=== PATIENT | female | born 1945 | race Caucasian/White ===

== ENCOUNTER 2016-05-08 09:35 | Emergency (ER) | payer MEDICARE, OTHER ==
[2016-05-08] MEDS ORDERED: ONDANSETRON HCL/PF 4 MG/ 2ML VIAL ONE (10:17)
[2016-05-08] MEDS ORDERED: 0.9 % SODIUM CHLORIDE 1,000 ML IV ONE (10:17)
[2016-05-08] MEDS ORDERED: ONDANSETRON HCL/PF 4 MG/ 2ML VIAL IVP ONE (10:19)
[2016-05-08] MEDS ORDERED: HYOSCYAMINE SULFATE 0.125 MG TAB.SUBL SL ONE (10:26)
[2016-05-08 10:27] LABS: BASOPHILS % 0.5 (0.0-1.5); EOSINOPHILS % 0.6 % (0.0-6.8); LYMPHOCYTES # 1.3 # k/uL (0.6-4.0); MEAN CORPUSCULAR HEMOGLOBIN 30.9 pg (28.0-34.0); MONOCYTES # 0.4 # k/uL (0.0-0.9); MONOCYTES % 5.3 % (0.0-11.0); NEUTROPHILS # 4.8 # k/uL (1.4-7.7)
[2016-05-08] MEDS ORDERED: PANTOPRAZOLE SODIUM 40 MG in 0.9 % SODIUM CHLORIDE 50 ML IV ONE (10:27)
[2016-05-08] MEDS ORDERED: 0.9 % SODIUM CHLORIDE 1,000 ML IV SCH (10:30)
[2016-05-08 10:49] LABS: eGFR (African) > 60; eGFR (Non-African) > 60
[2016-05-08] MEDS ORDERED: POTASSIUM CHLORIDE 20 MEQ TABLET.ER PO ONE (10:55)
--- NOTE | 2016-05-08 12:05 | ED Physician Documentation ---
Abdominal Pain - HISTORIAN Historian: patient - HPI Stated Complaint: nausea/diarrhea Chief Complaint: Abdominal Pain Additonal Information: diarrhea, no blood Onset: days ago (2) Duration: sudden-onset Timing: still present Context: bad food (possibly a bad egg). denies: out of country travel, recent trauma Severity: moderate Quality: aching Front/Back of Body, Lg (Color): 1 - pain 2 - pain Associated Symptoms: nausea, diarrhea Exacerbated by: nothing Relieved by: nothing Further Comments: no - ROS CONST: no problems GI/: other (as above) CVS/RESP: none EYES/ENT: none MS/SKIN/LYMPH: none NEURO/PSYCH: none - SOCIAL HX Smoking History: non-smoker Alcohol Use: none Drug Use: none - FAMILY HX Family History: no significant history - PAST HX Past History: diverticulitis Ischemic Bowel Risk Factors: none Other History: none Surgeries/Procedures: cholecystectomy, hysterectomy, other (left knee surgery) Home Medications: Ambulatory Orders Medication Instructions Recorded Acyclovir [Acyclovir] 400 mg PO TID 05/08/16 Diphenoxylate HCl/Atropine 1 each PO QID PRN #14 tablet 05/08/16 [Lomotil Tablet] Hydrochlorothiazide [Hydrodiuril] 25 mg PO DAILY 05/08/16 Hyoscyamine Sulfate 0.125 mg SL QID PRN #14 tab.subl 05/08/16 Levothyroxine Sodium 100 mg PO DAILY 05/08/16 [Levothyroxine Sodium] Lisinopril [Lisinopril] 30 mg PO DAILY 05/08/16 Montelukast Sodium [Montelukast 10 mg PO DAILY 05/08/16 Sodium] Omeprazole [Prilosec] 20 mg PO DAILY #7 ann. 05/08/16 Omeprazole [Prilosec] 20 mg PO TID 05/08/16 Allergies/Adverse Reactions: Allergies Allergy/AdvReac Type Severity Reaction Status Date / Time codeine Allergy Verified 05/08/16 09:53 latex Allergy Verified 05/08/16 09:53 Penicillins Allergy Verified 05/08/16 09:53 Sulfa (Sulfonamide Allergy Verified 05/08/16 09:53 Antibiotics) - VITAL SIGNS Vital Signs: Vital Signs Temp Pulse Resp BP Pulse Ox 99.2 F 86 18 142/79 98 05/08/16 10:00 05/08/16 10:00 05/08/16 10:00 05/08/16 10:00 05/08/16 10:00 - REVIEWED ASSESSMENTS Nursing Assessment Reviewed: Yes Vitals Reviewed: Yes Progress - Results/Orders Results/Orders: cbc, cmp, amylase, ct abdomen ordered - Progress Progress: pt. given 1 liter ns, 40 mg protonix ivpb, 0.25 mg hyoscyamine p.o. in er Critical Care Note - Critical Care Note Total Time (mins): 0 ED Results Lab/Radiology - Lab Results Lab Results: Lab Results 05/08/16 05/08/16 10:17 10:17 WBC 6.69 K/ul K/ul (4.00-12.00) RBC 4.77 M/ul M/ul (3.90-5.20) Hgb 14.8 g/dL g/dL (12.0-16.0) Hct 43.8 % % (34.5-46.5) MCV 91.9 fl fl (80.0-100.0) MCH 30.9 pg pg (28.0-34.0) MCHC 33.7 g/dL g/dL (30.0-36.0) RDW 13.5 % % (11.3-14.3) Plt Count 280 K/mm3 K/mm3 (130-400) Neut % (Auto) 72.5 % % (39.0-79.0) Lymph % (Auto) 19.4 % % (16.0-50.0) [place] % (Auto) 5.3 % % (0.0-11.0) Eos % (Auto) 0.6 % % (0.0-6.8) Baso % (Auto) 0.5 (0.0-1.5) Neut # 4.8 # k/uL # k/uL (1.4-7.7) Lymph # 1.3 # k/uL # k/uL (0.6-4.0) [place] # 0.4 # k/uL # k/uL (0.0-0.9) Eos # 0.0 # k/uL # k/uL (0.0-0.6) Baso # 0.0 # k/uL # k/uL (0.0-0.5) Reactive Lymphs % 1.7 % % (0.0-5.0) Reactive Lymphs # 0.1 # k/uL # k/uL (0.0-0.8) Sodium 135 mmol/L L mmol/L (136-145) Potassium 2.7 mmol/L L mmol/L (3.5-5.0) Chloride 108 mmol/L mmol/L (98-110) Carbon Dioxide 30 mmol/L mmol/L (20-32) BUN 10 mg/dL mg/dL (10-26) Creatinine 0.7 mg/dL mg/dL (0.4-1.5) Estimated Creat Clear 242 Est GFR ( Amer) > 60 (60 - ) Est GFR (Non-Af Amer) > 60 (60 - ) Glucose 116 mg/dL H mg/dL (70-99) Calcium 8.5 mg/dL mg/dL (8.5-10.5) Total Bilirubin 0.4 mg/dL mg/dL (0.2-1.2) AST 36 U/L U/L (0-41) ALT 36 U/L U/L (0-45) Alkaline Phosphatase 56 U/L U/L (46-116) Total Protein 6.9 g/dL g/dL (6.0-8.5) Albumin 4.2 g/dL g/dL (3.0-5.5) Amylase 32 U/L U/L (20-104) - Radiology Radiology Impressions: ct abdomen shows diverticulosis - Orders Orders: ED Orders Category Date Time Status Place Saline Lock/IV Now Care 05/08/16 10:[address] ABD & PELVIS W/O CON Stat Exams 05/08/16 Taken AMYLASE Routine Lab 05/08/16 10:17 Completed CBC/PLATELET/DIFF Routine Lab 05/08/16 10:17 Completed CMP Routine Lab 05/08/16 10:17 Completed URINALYSIS Routine Lab 05/08/16 10:17 Ordered 0.9 % Sodium Chloride [Normal Saline] 1,000 ml Med 05/08/16 10:30 Ordered IV .Q1H 0.9 % Sodium Chloride [Normal Saline] 1,000 ml Med 05/08/16 10:17 Discontinued IV .STK-MED Hyoscyamine Sulfate [[place]scimin Sl] Med 05/08/16 10:26 Discontinued 0.25 mg SL NOW ONE Ondansetron HCl/Pf [Zofran 4 mg/2 ml] Med 05/08/16 10:17 Discontinued 8 mg .ROUTE .STK-MED ONE Ondansetron HCl/Pf [Zofran 4 mg/2 ml] Med 05/08/16 10:19 Discontinued 8 mg IVP NOW ONE Pantoprazole Sodium [Protonix] 40 mg Med 05/08/16 10:27 Discontinued 0.9 % Sodium Chloride [Sodium Chloride] 50 ml IV 1T Potassium Chloride [Klor-Con M20] Med 05/08/16 10:55 Discontinued 60 meq PO NOW ONE Abdominal Pain Physical Exam - Physical Exam General Appearance: alert, mild distress EENT: eye inspection normal, ENT inspection normal, pharynx normal, no signs of dehydration, [place], no nystagmus, TM's nml NECK: normal inspection, thyroid normal, supple RESPIRATORY: no resp distress, chest non-tender, breath sounds normal CVS: reg rate & rhythm, heart sounds normal, equal pulses, no murmur, no gallop ABDOMEN: soft, no organomegaly, tenderness (sigmoid and epigastric areas), increased BS BACK: normal inspection, no CVA tenderness SKIN: warm/dry, normal color EXTREMITIES: non-tender, normal range of motion, no evidence of injury NEURO: oriented X3, CN's nml as tested, motor nml, sensation nml, mood/affect nml, cognition normal Vital Signs: Vital Signs Temp Pulse Resp BP Pulse Ox 99.2 F 86 18 142/79 98 05/08/16 10:00 05/08/16 10:00 05/08/16 10:00 05/08/16 10:00 05/08/16 10:00 Discharge Clincal Impression: Diverticulosis Qualifiers: Diverticulosis site: diverticulosis of large intestine Diverticulosis bleeding : diverticulosis without bleeding Qualified Code(s): K57.30 - Diverticulosis of large intestine without perforation or abscess without bleeding Prescriptions: Diphenoxylate HCl/Atropine [Lomotil Tablet] 1 each PO QID PRN #14 tablet PRN Reason: Diarrhea Hyoscyamine Sulfate 0.125 mg SL QID PRN #14 tab.subl PRN Reason: Abdominal Pain Omeprazole [Prilosec] 20 mg PO DAILY #7 capsule. Referrals: Hunter Mckeon [Primary Care Provider] - 2 Days Home Medications: Ambulatory Orders Acyclovir [Acyclovir] 400 mg PO TID 05/08/16 Diphenoxylate HCl/Atropine [Lomotil Tablet] 1 each PO QID PRN #14 tablet Hydrochlorothiazide [Hydrodiuril] 25 mg PO DAILY 05/08/16 Hyoscyamine Sulfate 0.125 mg SL QID PRN #14 tab.subl 05/08/16 Levothyroxine Sodium [Levothyroxine Sodium] 100 mg PO DAILY 05/08/16 Lisinopril [Lisinopril] 30 mg PO DAILY 05/08/16 Montelukast Sodium [Montelukast Sodium] 10 mg PO DAILY 05/08/16 Omeprazole [Prilosec] 20 mg PO DAILY #7 capsule. 05/08/16 Omeprazole [Prilosec] 20 mg PO TID 05/08/16 Comments: discharged in stable condition with scripts as above Condition: Stable Disposition: 01 HOME, SELF-CARE Decision to Admit: NO Decision Time: 12:00
[2016-05-08 12:22] VITALS: BP 106/50
--- NOTE | 2016-05-08 18:48 | Diagnostic Imaging Report ---
[facility] [id number] [facility] [address] [place] [address]. [id number] Report Submission Date: May 08, 2016 11:38:48 AM CDT Patient Study Name: INGRID GOLD Date: May 08, 2016 10:34:30 AM CDT Modality Type: CT\SR Gender: F Description: CT ABD & PELVIS W/O CO : 41 Institution: [facility] Physician: PARISA SERRANO - ER CT abdomen and pelvis without contrast CLINICAL HISTORY: NAUSEA AND DIARRHEA X 3 DAYS. PT STATES 8 POUNDS OF WEIGHT LOSS SINCE DIARRHEA STARTED ORDERED WITHOUT CONTRAST (Hx) / NAUSEA/DIARRHEA ( DICOM Hx) TECHNIQUE: 5 mm contiguous axial images of the abdomen and pelvis non contrast. FINDINGS: Evaluation is limited without IV contrast. The lung bases are clear. There is a hiatal hernia. There is mild atelectasis or infiltrate left lung base. The noncontrast liver unremarkable part from small hypodensity in the left hepatic lobe. The noncontrast spleen, adrenal glands and pancreas are unremarkable. The gallbladder is surgically absent. No biliary ductal dilatation. No hydronephrosis or nephrolithiasis. The urinary bladder unremarkable. The bowel loops are nondistended. There is sigmoid diverticulosis without diverticulitis. The appendix is normal. No ascites. No pneumoperitoneum. IMPRESSION: 1. Mild hernia. 2. Sigmoid diverticulosis without diverticulitis. Electronically signed on May 08, 2016 11:38:48 AM CDT by: Saeed HENRY
== END 2016-05-08 12:20 | disposition home or self-care (01) ==
LOC: ED 09:35
DX: K57.30 Diverticulosis of large intestine without perforation or abscess without bleeding (principal)
CPT/HCPCS: 74176; 80053; 82150; 85025; A9270; J2405; J7030; 96361; 96365; 99283; 99284; S1016

== ENCOUNTER 2016-07-23 16:14 | Emergency (ER) | payer MEDICARE, OTHER ==
[2016-07-23] MEDS: ONDANSETRON HCL 4 MG TAB.RAPDIS PO ONE (16:48)
[2016-07-23] MEDS: 0.9 % SODIUM CHLORIDE 1,000 ML IV ONE ×2 (18:21→19:10)
[2016-07-23 18:27] LABS: BASOPHILS % 0.4 (0.0-1.5); EOSINOPHILS % 1.7 % (0.0-6.8); MEAN CORPUSCULAR HEMOGLOBIN 30.3 pg (28.0-34.0); MEAN CORPUSCULAR VOLUME 90.8 fl (80.0-100.0); MONOCYTES % 3.3 % (0.0-11.0); NEUTROPHILS # 8.4 # k/uL (1.4-7.7)
[2016-07-23 18:41] LABS: eGFR (African) > 60; eGFR (Non-African) > 60
[2016-07-23] MEDS ORDERED: KETOROLAC TROMETHAMINE 30 MG/1ML VIAL ONE (18:54)
[2016-07-23] MEDS: KETOROLAC TROMETHAMINE 30 MG/1ML VIAL IVP ONE (19:00)
[2016-07-23] MEDS: DILTIAZEM HCL 25 MG/ 5ML VIAL IVP ONE (19:09)
[2016-07-23 19:59] VITALS: BP 126/63
[2016-07-24 06:25] LABS: APPEARANCE,URINE CLEAR (CLEAR); COLOR,URINE YELLOW (YELLOW); OCCULT BLOOD,URINE NEGATIVE (NEGATIVE)
--- NOTE | 2016-09-08 19:19 | ED Physician Documentation ---
General Adult - VITAL SIGNS Vital Signs: Vital Signs Temp Pulse Resp BP Pulse Ox 98.7 F 75 16 126/63 94 07/23/16 16:15 07/23/16 19:56 07/23/16 19:56 07/23/16 19:56 07/23/16 19:56 <Jensen Griffin - Last Filed: 09/08/16 19:18> - HISTORIAN Historian: patient - HPI Stated Complaint: Nausea Chief Complaint: General Adult Additional Information: Knee injection per orthopod on 07/21. Had a great deal of pain and took an ol percocet that evening and another early the next morning. Seen at [place] ER the next day for her pain. Continued to take percocet. Day sbeen nauseated and not eating or drinking much. Constipated from multiple percocets/day. - ROS CONST: no problems. denies: fever - PAST HX Past History: other (back pain, left knee pain) - SOCIAL HX Smoking History: non-smoker - FAMILY HX Family History: No (no signif) - VITAL SIGNS Vital Signs: Vital Signs Temp Pulse Resp BP Pulse Ox 98.7 F 80 18 103/63 98 07/23/16 16:15 07/23/16 16:15 07/23/16 16:15 07/23/16 16:15 07/23/16 16:15 - REVIEWED ASSESSMENTS Nursing Assessment Reviewed: Yes Vitals Reviewed: Yes <MCKINLEY FLETCHER - Last Filed: 09/20/16 04:42> - PAST HX Allergies/Adverse Reactions: Allergies Allergy/AdvReac Type Severity Reaction Status Date / Time clindamycin HCl Allergy Verified 07/23/16 16:40 [From Cleocin] clindamycin palmitate HCl Allergy Verified 07/23/16 16:40 [From Cleocin] clindamycin phosphate Allergy Verified 07/23/16 16:40 [From Cleocin] codeine Allergy Verified 05/08/16 09:53 latex Allergy Verified 05/08/16 09:53 nitrofurantoin Allergy Verified 07/23/16 16:40 macrocrystalline [From Macrodantin] Penicillins Allergy Verified 05/08/16 09:53 Sulfa (Sulfonamide Allergy Verified 05/08/16 09:53 Antibiotics) tetracycline Allergy Verified 07/23/16 16:40 zolpidem tartrate Allergy Verified 07/23/16 16:40 [From Ambien] levofloxacin [From Levaquin] AdvReac No Reaction Verified 07/23/16 16:40 Home Medications: Ambulatory Orders Medication Instructions Recorded Acyclovir [Acyclovir] 400 mg PO TID 05/08/16 Hydrochlorothiazide [Hydrodiuril] 25 mg PO DAILY 05/08/16 Levothyroxine Sodium 100 mg PO DAILY 05/08/16 [Levothyroxine Sodium] Lisinopril [Lisinopril] 20 mg PO DAILY 05/08/16 Montelukast Sodium [Montelukast 10 mg PO DAILY 05/08/16 Sodium] Omeprazole [Prilosec] 20 mg PO DAILY #7 capsule. 05/08/16 Clonazepam [Clonazepam] 1 mg PO TID 07/23/16 Epinephrine [Epipen 2-Cb] PRN 07/23/16 Ondansetron HCl Rapdis [Zofran Odt] 4 mg PO Q8 PRN #10 tab 07/23/16 oxyCODONE HCL/ACETAMINOPHEN 1 each PO Q4 PRN 07/23/16 [Percocet 5-325 mg Tablet] Progress - Progress Progress: Rx Zofran 4 mg. Take one every 8 hr as needed for nausea/vomiting. Rx Docusate (Colace) 100 mg. Take once or twice daily for constipation Magnesium Citrate (available over the counter). Drink one-half bottle. If no bowel movement after 6 hours, repeat. Use for constipation if needed. <Jensen Griffin - Last Filed: 09/08/16 19:18> - Progress Progress: 1900, just received ice pack and toradol for knee pain. IV fluids running. Care to Dr. Griffin. <MCKINLEY FLETCHER - Last Filed: 09/20/16 04:42> ED Results Lab/Radiology - Lab Results Lab Results: Lab Results 07/23/16 07/23/16 07/23/16 18:20 18:20 18:20 WBC 10.20 K/ul K/ul (4.00-12.00) RBC 4.35 M/ul M/ul (3.90-5.20) Hgb 13.2 g/dL g/dL (12.0-16.0) Hct 39.4 % % (34.5-46.5) MCV 90.8 fl fl (80.0-100.0) MCH 30.3 pg pg (28.0-34.0) MCHC 33.4 g/dL g/dL (30.0-36.0) RDW 13.1 % % (11.3-14.3) Plt Count 292 K/mm3 K/mm3 (130-400) Neut % (Auto) 82.6 % H % (39.0-79.0) Lymph % (Auto) 11.1 % L % (16.0-50.0) [place] % (Auto) 3.3 % % (0.0-11.0) Eos % (Auto) 1.7 % % (0.0-6.8) Baso % (Auto) 0.4 (0.0-1.5) Neut # 8.4 # k/uL H # k/uL (1.4-7.7) Lymph # 1.1 # k/uL # k/uL (0.6-4.0) [place] # 0.3 # k/uL # k/uL (0.0-0.9) Eos # 0.2 # k/uL # k/uL (0.0-0.6) Baso # 0.0 # k/uL # k/uL (0.0-0.5) Reactive Lymphs % 0.8 % % (0.0-5.0) Reactive Lymphs # 0.1 # k/uL # k/uL (0.0-0.8) Sodium 134 mmol/L L mmol/L (136-145) Potassium 3.6 mmol/L mmol/L (3.5-5.0) Chloride 110 mmol/L mmol/L (98-110) Carbon Dioxide 35 mmol/L H mmol/L (20-32) BUN 14 mg/dL mg/dL (10-26) Creatinine 0.7 mg/dL mg/dL (0.4-1.5) Estimated Creat Clear 108 Est GFR ( Amer) > 60 (60 - ) Est GFR (Non-Af Amer) > 60 (60 - ) Glucose 119 mg/dL H mg/dL (70-99) Calcium 9.6 mg/dL mg/dL (8.5-10.5) Total Bilirubin 1.3 mg/dL H mg/dL (0.2-1.2) AST 18 U/L U/L (0-41) ALT 13 U/L U/L (0-45) Alkaline Phosphatase 70 U/L U/L (46-116) Total Protein 7.0 g/dL g/dL (6.0-8.5) Albumin 4.0 g/dL g/dL (3.0-5.5) Urine Color Yellow (YELLOW) Urine Appearance Clear (CLEAR) Urine pH 7.0 (5.0 - 8.0) Ur Specific Elsie 1.020 (1.010-1.030) Urine Protein Negative mg/dL mg/dL (NEGATIVE) Urine Ketones Negative mg/dL mg/dL (NEGATIVE) Urine Occult Blood Negative (NEGATIVE) Urine Nitrite Negative (NEGATIVE) Urine Bilirubin Negative (NEGATIVE) Urine Urobilinogen 1.0 Eu Eu (0.2-1.0) Ur Leukocyte Esterase Negative (NEGATIVE) Urine Glucose Negative mg/dL mg/dL (NEGATIVE) - Orders Orders: ED Orders Category Date Time Status Place IV Lock 1T Care 07/23/16 16:[address] IV Lock 1T Care 07/23/16 17:46 Active CBC/PLATELET/DIFF Routine Lab 07/23/16 18:20 Completed CMP Routine Lab 07/23/16 18:20 Completed UA MACRO DIP ONLY Routine Lab 07/23/16 18:20 Completed 0.9 % Sodium Chloride [Normal Saline] 1,000 ml Med 07/23/16 16:24 Discontinued IV Q1H 0.9 % Sodium Chloride [Normal Saline] 1,000 ml Med 07/23/16 17:47 Discontinued IV Q1H Diltiazem HCl [Cardizem] Med 07/23/16 16:24 Discontinued 45 mg IVP STAT ONE Ketorolac Tromethamine [Toradol] Med 07/23/16 18:54 Discontinued 30 mg .ROUTE .STK-MED ONE Ketorolac Tromethamine [Toradol] Med 07/23/16 18:55 Discontinued 30 mg IVP NOW ONE Ondansetron HCl Rapdis [Zofran Odt] Med 07/23/16 16:38 Discontinued 4 mg PO NOW ONE <Jensen Griffin - Last Filed: 09/08/16 19:18> - Orders Orders: ED Orders Category Date Time Status Place IV Lock 1T Care 07/23/16 16:[address] IV Lock 1T Care 07/23/16 17:46 Active CBC/PLATELET/DIFF Routine Lab 07/23/16 Ordered CMP Routine Lab 07/23/16 Ordered UA [URINALYSIS] Routine Lab 07/23/16 Ordered 0.9 % Sodium Chloride [Normal Saline] 1,000 ml Med 07/23/16 16:24 Discontinued IV Q1H 0.9 % Sodium Chloride [Normal Saline] 1,000 ml Med 07/23/16 17:47 Active IV Q1H Diltiazem HCl [Cardizem] Med 07/23/16 16:24 Discontinued 45 mg IVP STAT ONE Ondansetron HCl Rapdis [Zofran Odt] Med 07/23/16 16:38 Discontinued 4 mg PO NOW ONE <MCKINLEY FLETCHER - Last Filed: 09/20/16 04:42> General Adult Physical Exam - PHYSICAL EXAM GENERAL APPEARANCE: mild distress EENT: eye inspection normal, ENT inspection normal, pharynx normal NECK: normal inspection, supple RESPIRATORY: no resp distress, breath sounds normal CVS: reg rate & rhythm, heart sounds normal, no murmur ABDOMEN: soft, normal bowel sounds RECTAL: deferred BACK: normal inspection SKIN: warm/dry, normal color EXTREMITIES: no evidence of injury, other (left knee with cool effusion, suprapatellar swelling) NEURO: CN's nml as tested, motor nml, sensation nml, cognition normal <MCKINLEY FLETCHER - Last Filed: 09/20/16 04:42> Discharge Decision to Admit: NO Decision Time: 20:00 <Jensen Griffin - Last Filed: 09/08/16 19:18> <MCKINLEY FLETCHER - Last Filed: 09/20/16 04:42> Clincal Impression: Constipation, Mild dehydration Prescriptions: Ondansetron HCl Rapdis [Zofran Odt] 4 mg PO Q8 PRN #10 tab PRN Reason: Nausea / Vomiting Referrals: Hunter Mckeon [Primary Care Provider] - Home Medications: Ambulatory Orders Acyclovir [Acyclovir] 400 mg PO TID 05/08/16 Hydrochlorothiazide [Hydrodiuril] 25 mg PO DAILY 05/08/16 Levothyroxine Sodium [Levothyroxine Sodium] 100 mg PO DAILY 05/08/16 Lisinopril [Lisinopril] 20 mg PO DAILY 05/08/16 Montelukast Sodium [Montelukast Sodium] 10 mg PO DAILY 05/08/16 Omeprazole [Prilosec] 20 mg PO DAILY #7 capsule. 05/08/16 Clonazepam [Clonazepam] 1 mg PO TID 07/23/16 Epinephrine [Epipen 2-Cb] PRN 07/23/16 Ondansetron HCl Rapdis [Zofran Odt] 4 mg PO Q8 PRN #10 tab 07/23/16 oxyCODONE HCL/ACETAMINOPHEN [Percocet 5-325 mg Tablet] 1 each PO Q4 PRN Condition: Good Disposition: 01 HOME, SELF-CARE
== END 2016-07-23 19:38 | disposition home or self-care (01) ==
LOC: ED 16:14
DX: K59.00 Constipation, unspecified (principal); E86.0 Dehydration
CPT/HCPCS: 80053; 81002; 85025; A9270; J1885; J7030; 96361; 96374; 99283; S1016

== ENCOUNTER 2016-09-17 13:01 | Outpatient (CLI) | payer MEDICARE, OTHER ==
[~2016-09-17 13:01] MED LIST: PATIENT OWN MED 1 EACH EACH IM SCH
== END 2016-09-17 13:02 ==
LOC: INF 13:01
PROVIDERS: ATTEND Obstetrics & Gynecology
DX: N95.1 Menopausal and female climacteric states (principal)
CPT/HCPCS: 96372

== ENCOUNTER 2016-10-18 11:44 | Outpatient (CLI) | payer MEDICARE, OTHER | END 2016-10-18 11:45 | LOC: INF 11:44 | PROVIDERS: ATTEND Obstetrics & Gynecology | DX: N95.1 Menopausal and female climacteric states (principal) | CPT/HCPCS: 96372 ==

== ENCOUNTER 2016-11-19 11:48 | Outpatient (CLI) | payer MEDICARE, OTHER ==
[~2016-11-19 11:48] MED LIST changes: +ESTRADIOL VALERATE 40 MG/ML IM SCH; -PATIENT OWN MED 1 EACH EACH IM SCH
== END 2016-11-19 11:50 ==
LOC: INF 11:48
PROVIDERS: ATTEND Obstetrics & Gynecology
DX: N95.1 Menopausal and female climacteric states (principal)
CPT/HCPCS: 96372

== ENCOUNTER 2016-12-20 12:45 | Outpatient (CLI) | payer MEDICARE, OTHER ==
[2016-12-20] MEDS ORDERED: PATIENT OWN MED 1 EACH EACH IM SCH (13:00)
== END 2016-12-20 12:47 ==
LOC: INF 12:45
PROVIDERS: ATTEND Obstetrics & Gynecology
DX: N95.1 Menopausal and female climacteric states (principal)
CPT/HCPCS: 96372

== ENCOUNTER 2017-01-21 09:25 | Outpatient (CLI) | payer MEDICARE, OTHER ==
[2017-01-21] MEDS ORDERED: ESTRADIOL IM SCH (10:00)
== END 2017-01-21 09:26 ==
LOC: INF 09:25
PROVIDERS: ATTEND Obstetrics & Gynecology
DX: N95.1 Menopausal and female climacteric states (principal)
CPT/HCPCS: 96372